=== PATIENT | male | born 1960 | race Caucasian/White ===

== ENCOUNTER 2017-05-12 06:56 | Day surgery (SDC) | payer BC ==
[2017-05-12] MEDS ORDERED: PROPOFOL 500 MG/50 ML EMU IV ONE ×2 (07:09→08:39)
[2017-05-12] MEDS ORDERED: LIDOCAINE HCL 1% MPF SOL ONE (07:09)
[2017-05-12] MEDS ORDERED: ONDANSETRON HCL 4 MG/2 ML SOL ONE (08:39)
[2017-05-12 09:28] VITALS: TEMP 97.8
[2017-05-12 09:30] VITALS: O2SAT 98
[2017-05-12 09:48] VITALS: BP 168/90; PULSE 56; RESP 20
== END 2017-05-12 10:08 | disposition home or self-care (01) ==
LOC: SURG 06:56
PROVIDERS: ATTEND Surgery
DX: R19.7 Diarrhea, unspecified (principal); R11.2 Nausea with vomiting, unspecified; K44.9 Diaphragmatic hernia without obstruction or gangrene; K31.7 Polyp of stomach and duodenum; K29.70 Gastritis, unspecified, without bleeding; K22.8 Other specified diseases of esophagus; K64.8 Other hemorrhoids
CPT/HCPCS: 99001; J2405; J2001; J2704

== ENCOUNTER 2017-05-13 08:10 | Inpatient (IN) | payer BC ==
[2017-05-13] MEDS ORDERED: PANTOPRAZOLE SODIUM 40 MG/10 ML PDS IV ONE (08:42)
[2017-05-13] MEDS: SODIUM CHLORIDE 0.9% FLUSH 10 ML SOL IV PRN ×2 (08:45→08:57)
[2017-05-13 08:53] LABS: HEMATOCRIT 28 % (39-53); MEAN CORPUSCULAR HGB CONC 33.4 gm/dl (32.0-36.0); MEAN CORPUSCULAR VOLUME 84 fL (80-100)
[2017-05-13] MEDS ORDERED: PANTOPRAZOLE SODIUM 40 MG/10 ML PDS ONE (08:53)
[2017-05-13 09:07] LABS: ALBUMIN 2.2 gm/dl (3.4-5.0); CALCIUM 7.8 mg/dl (8.5-10.1); POTASSIUM 4.4 mMol/L (3.5-5.1)
[2017-05-13 09:21] LABS: BASOPHILS % (MANUAL) 0 % (0-3); EOSINOPHILS % (MANUAL) 0 % (0-9); LYMPHOCYTES % (MANUAL) 19 % (10-50); NORMAL RBCS PRESENT
[2017-05-13 10:24] LABS: ABO A; ANTIBODY SCREEN Negative; RH TYPE Positive
[2017-05-13] MEDS ORDERED: EPINEPHRINE 1:10,000 PREFILL 0.1 MG/ML SOL ONE ×2 (10:42→10:46)
[2017-05-13] MEDS ORDERED: PROPOFOL 500 MG/50 ML EMU IV ONE ×3 (11:06→12:10)
[2017-05-13] MEDS ORDERED: ONDANSETRON HCL 4 MG/2 ML SOL ONE (11:15)
[2017-05-13] MEDS ORDERED: METOCLOPRAMIDE HYDROCHLORIDE 5 MG/ML SOL ONE (12:26)
[2017-05-13] MEDS: METOLAZONE 2.5 MG TABLET PO SCH (14:49)
[2017-05-13] MEDS: METOPROLOL TARTRATE 50 MG TAB PO SCH ×2 (14:50→20:30)
[2017-05-13] MEDS: MULTIVITAMIN2 1 EA TAB PO SCH (14:51)
[2017-05-13] MEDS: PREDNISONE 5 MG TAB PO SCH (14:51)
[2017-05-13] MEDS: TACROLIMUS 1 MG CAP PO SCH ×2 (19:23→20:40)
[2017-05-13] MEDS: BUMETANIDE 1 MG TAB PO SCH (20:29)
[2017-05-13] MEDS: MYCOPHENOLATE 500 MG PO SCH (20:30)
[2017-05-13] MEDS ORDERED: AMLODIPINE 5 MG TAB PO SCH (21:00)
[2017-05-14] MEDS: TACROLIMUS 1 MG CAP PO SCH ×2 (06:46→09:40)
[2017-05-14 07:28] LABS: CALCIUM 7.7 mg/dl (8.5-10.1); POTASSIUM 4.1 mMol/L (3.5-5.1)
[2017-05-14] MEDS: METOPROLOL TARTRATE 50 MG TAB PO SCH (08:09)
[2017-05-14] MEDS: MYCOPHENOLATE 500 MG PO SCH (08:10)
[2017-05-14] MEDS: BUMETANIDE 1 MG TAB PO SCH (08:11)
[2017-05-14] MEDS: PREDNISONE 5 MG TAB PO SCH (08:12)
[2017-05-14] MEDS: MULTIVITAMIN2 1 EA TAB PO SCH (08:12)
[2017-05-14] MEDS: METOLAZONE 2.5 MG TABLET PO SCH (08:13)
[2017-05-14 08:20] VITALS: BP 165/95; PULSE 60; RESP 18; TEMP 97.9; O2SAT 98
[2017-05-14] MEDS ORDERED: DOXAZOSIN 2 MG TAB PO SCH (09:00)
[2017-05-14] MEDS ORDERED: ESOMEPRAZOLE SODIUM 40 MG VIAL IV SCH (09:00)
[2017-05-14] MEDS ORDERED: FERROUS GLUCONATE 324 MG TABLET PO SCH (09:00)
[2017-05-14] MEDS ORDERED: AMLODIPINE 5 MG TAB PO SCH (09:00)
== END 2017-05-14 12:00 | disposition home or self-care (01) | DRG 253 ==
LOC: ED 08:10 → EDSTATUS 10:56 → SURG 10:57 → ACUTE CARE 12:55
PROVIDERS: ADMIT Family Medicine; ATTEND Family Medicine
PROC: 0W3P8ZZ Control Bleeding in Gastrointestinal Tract, Via Natural or Artificial Opening Endoscopic (ICD-10-PCS; principal; 2017-05-13 11:00)
DX: K92.2 Gastrointestinal hemorrhage, unspecified (principal); N28.9 Disorder of kidney and ureter, unspecified; Z87.19 Personal history of other diseases of the digestive system
CPT/HCPCS: 80048; 80053; 85007; 85018; 85027; 85610; 86850; 86900; 86901; J2405; J2765; A9270-GY; J2704

== ENCOUNTER 2017-08-06 06:45 | Emergency (ER) | payer BC ==
[2017-08-06 06:50] VITALS: RESP 18; TEMP 97.7
[2017-08-06 07:23] LABS: APPEARANCE,URINE Clear; BILIRUBIN,URINE NEGATIVE (NEGATIVE); COLOR,URINE Yellow; GLUCOSE, URINE (UA) NEGATIVE (NEGATIVE); KETONES,URINE NEGATIVE (NEGATIVE); LEUKOCYTE ESTERASE ,URINE NEGATIVE (NEGATIVE); NITRATE,URINE NEGATIVE (NEGATIVE); OCCULT BLOOD,URINE 1+ (NEG-TRACE); UROBILINOGEN,URINE 0.2 (0.2-1.0 EU)
[2017-08-06 07:40] LABS: RBC,URINE 0-2 (0-3AV/HPF)
[2017-08-06 07:41] LABS: BACTERIA TRACE (< 1+); CRYSTALS 1+ AMORPHOUS URATES (0-3 AVE/HPF); EPITHELIAL CELLS 0-1 (SQUAMOUS); WBC,URINE NEGATIVE (0-5AV/HPF)
[2017-08-06 08:36] VITALS: BP 182/88; PULSE 54; O2SAT 100
== END 2017-08-06 08:17 | disposition home or self-care (01) ==
LOC: ED 06:45
DX: T81.9XXA Unspecified complication of procedure, initial encounter (principal); R33.8 Other retention of urine; I12.9 Hypertensive chronic kidney disease with stage 1 through stage 4 chronic kidney disease, or unspecified chronic kidney disease; N18.9 Chronic kidney disease, unspecified
CPT/HCPCS: 51798; 81001; 99283

== ENCOUNTER 2017-09-09 21:02 | Emergency (ER) | payer BC ==
[2017-09-09 21:27] VITALS: PULSE 62; RESP 16; TEMP 98.7
[2017-09-09 22:21] LABS: BASOPHILS % (AUTO) 1 % (0-3); EOSINOPHILS % (AUTO) 1 % (0-9); HEMATOCRIT 26 % (39-53); HEMOGLOBIN 8.8 gm/dl (13.5-17.7); LYMPHOCYTES % (AUTO) 11.36 % (10-50); MEAN CORPUSCULAR HEMOGLOBIN 27.6 pg (27.0-32.0); MEAN CORPUSCULAR HGB CONC 33.3 gm/dl (32.0-36.0); MEAN CORPUSCULAR VOLUME 83 fL (80-100); MONOCYTES % (AUTO) 8.7 % (0-12); NEUTROPHILS % (AUTO) 77.8 % (37-80)
[2017-09-09 22:31] LABS: INR 2.26 (0.86-1.12)
[2017-09-09 22:36] LABS: CALCIUM 7.2 mg/dl (8.5-10.1); CARBON DIOXIDE 20.6 mEq/L (21-32); CREATININE 4.87 mg/dl (0.80-1.30); POTASSIUM 4.4 mMol/L (3.5-5.1)
[2017-09-09] MEDS ORDERED: TRAMADOL HYDROCHLORIDE 50 MG TAB PO ONE (22:56)
[2017-09-09] MEDS ORDERED: TRAMADOL HYDROCHLORIDE 50 MG TAB ONE (23:02)
[2017-09-09 23:12] VITALS: BP 167/91; O2SAT 98
== END 2017-09-09 23:09 | disposition home or self-care (01) ==
LOC: ED 21:02
DX: M79.662 Pain in left lower leg (principal); Z79.01 Long term (current) use of anticoagulants; S80.12XA Contusion of left lower leg, initial encounter; W01.0XXA Fall on same level from slipping, tripping and stumbling without subsequent striking against object, initial encounter
CPT/HCPCS: 36415; 80048; 85025; 85610; 99283; A9270-GY